=== PATIENT | female | born 1960 | race Caucasian/White ===

== ENCOUNTER 2017-05-04 10:55 | Emergency (ER) | payer BC, OTHER ==
[~2017-05-04] VITALS: Ht 162.6 cm; Wt 81.0 kg
[~2017-05-04 10:55] MED LIST: CHOL200010 OR; CLN200 PO; FLX10 PO; GABA1CAP5 PO; GABA800T PO; SUMA50TA15 PO; TOPI100T20 PO; TOPI50TA16 PO; TRAZ50TA35 PO; ZCRUNK PO
[2017-05-04] MEDS ORDERED: SODIUM CHLORIDE 0.9% 1000ML 1,000 ML IV SCH (11:00)
--- NOTE | 2017-05-04 11:15 | DIAGNOSTIC IMAGING REPORT ---
HEAD CT NONCONTRAST CT DOSE: HISTORY: Stroke symptoms. stroke TECHNIQUE: Multiaxial CT images of the head were performed without the use of intravenous contrast. Automated exposure control was utilized for this study. A dose lowering technique was utilized adhering to the principles of ALARA. Comparison: None. Findings: The paranasal sinuses and mastoid air cells are clear. The calvarium and skull base are intact. The ventricles and sulci are within normal limits. There is no mass, hematoma, or midline shift. Punctate focus of increased density within the left sylvian fissure on image 12. This raises the possibility of a thrombosed branch of the distal left MCA. However, there is no loss of the packer-white differentiation to suggest an acute infarct at this time. Bilateral symmetric basal ganglia calcifications. Impression: Punctate focus of increased density within the left sylvian fissure with the. This raises the possibility of a thrombosed branch of the distal left MCA. However, there is no loss of the packer-white differentiation to suggest an acute infarct at this time. Please correlate for left-sided stroke symptoms. Electronically signed by: Leonardo Chaudhry M.D. 05/04/2017 11:13 AM Dictated Date/Time: 05/04/2017 11:08 AM
[2017-05-04 11:24] VITALS: TEMP 36.5
[2017-05-04] MEDS ORDERED: OPTIRAY 320 IV PRN (11:30)
[2017-05-04] MEDS ORDERED: RECOMBINANT IV STA (11:35)
[2017-05-04] MEDS ORDERED: ALTEPLASE IV STA (11:35)
[2017-05-04 11:39] LABS: HEMATOCRIT 41.8 % (37-47); MEAN CELL VOLUME 98.6 fL (80-100); MEAN CORPUSCULAR HEMOGLOBIN 33.3 pg (25-34); MEAN CORPUSCULAR HGB CONC 33.7 g/dl (32-36); MEAN PLATELET VOLUME 9.6 fL (7.4-10.4); PLATELET COUNT 272 K/uL (130-400); RED BLOOD COUNT 4.24 M/uL (4.2-5.4); WHITE BLOOD COUNT 16.92 K/uL (4.8-10.8)
[2017-05-04 11:46] VITALS: O2SAT 100
[2017-05-04 11:47] LABS: INR 0.9 (0.9-1.1); PARTIAL THROMBOPLASTIN RATIO 0.9
[2017-05-04] MEDS ORDERED: LORAZEPAM 2 MG/ML 1 ML VIAL IV STA (11:54)
[2017-05-04] MEDS ORDERED: LORAZEPAM 2 MG/ML 1 ML VIAL ONE (11:54)
[2017-05-04 11:57] LABS: BLOOD UREA NITROGEN 14 mg/dl (7-18); BUN/CREATININE RATIO 13.5 (10-20); CALCIUM 8.5 mg/dl (8.5-10.1); CARBON DIOXIDE 23 mmol/L (21-32); CHLORIDE 111 mmol/L (98-107); CREATININE 1.03 mg/dl (0.60-1.20); GLUCOSE 90 mg/dl (70-99); POTASSIUM 3.6 mmol/L (3.5-5.1); SODIUM 142 mmol/L (136-145)
[2017-05-04] MEDS ORDERED: SET 2260-0500 IV ONE (12:00)
[2017-05-04] MEDS ORDERED: ALTEPLASE IV SCH (12:00)
[2017-05-04] MEDS ORDERED: ALTEPLASE IV ONE (12:00)
[2017-05-04] MEDS ORDERED: RECOMBINANT IV SCH (12:00)
[2017-05-04] MEDS ORDERED: RECOMBINANT IV ONE (12:00)
[2017-05-04 12:02] LABS: CKMB/CK RATIO 2.3 (0-3.0)
[2017-05-04 12:04] LABS: BASO % 0.4 %; BASO ABS # 0.07 K/uL (0-0.2); COMPLETE YES; HYPERSEGMENTED POLYS 1+; IG% 0.4 %; LYMPH % 30.9 %; LYMPH ABS # 5.23 K/uL (1.2-3.4); MONO % 7.4 %; NEUT % 58.9 %; TEAR DROP CELLS 1+
--- NOTE | 2017-05-04 12:05 | DIAGNOSTIC IMAGING REPORT ---
CHEST ONE VIEW PORTABLE HISTORY: Stroke symptoms. COMPARISON: Chest 03/18/2007. FINDINGS: Small linear density at the left lung base favors scarring or atelectasis. The lungs are otherwise clear. The heart is normal in size. No pleural effusions. No pneumothorax. Surgical clips within the right upper quadrant. IMPRESSION: No acute process. Electronically signed by: Leonardo Chaudhry M.D. 05/04/2017 12:04 PM Dictated Date/Time: 05/04/2017 12:03 PM
[2017-05-04 12:07] VITALS: Ht 162.6 cm; Wt 81.0 kg
[2017-05-04] MEDS ORDERED: ESCI1TAB10 PO (12:42)
[2017-05-04] MEDS ORDERED: NRN/600 PO ×2 (12:42)
[2017-05-04] MEDS ORDERED: TOPI100T20 PO (12:42)
[2017-05-04] MEDS ORDERED: RLF750 PO (12:42)
--- NOTE | 2017-05-04 12:45 | DIAGNOSTIC IMAGING REPORT ---
ADDENDUM A 1.7 mm aneurysm within the supraclinoid segment of the left ICA. Electronically signed by: Leonardo Chaudhry M.D. 05/04/2017 12:48 PM Dictated Date/Time: 05/04/2017 12:48 PM ORIGINAL REPORT HEAD CTA HISTORY: Status post TPA. Stroke. TECHNIQUE: Multiaxial CT images of the head were performed both before and after the intravenous administration of contrast to evaluate the major cerebral vessels. Maximum intensity projection images were also obtained. A dose lowering technique was utilized adhering to the principles of ALARA. COMPARISON: Head CT 05/04/2017. FINDINGS: There is now evidence for loss of the packer-white junction within the left subinsular cortex consistent with an acute MCA territory infarct. Bilateral basal ganglia calcifications are again noted. No hematoma or midline shift. The ventricles are normal in size. No significant stenosis or occlusion within the intracranial internal carotid arteries, distal vertebral arteries, basilar artery, bilateral ACAs, bilateral underwriting director, or right MCA. Focal abrupt cutoff/occlusion within the superior branch of the left MCA corresponding to the left MCA territory infarct. This is best seen on coronal image 37 of 99. IMPRESSION: Focal occlusion within the superior branch of the left MCA resulting in the left MCA territory infarct. No acute hemorrhage. Electronically signed by: Leonardo Chaudhry M.D. 05/04/2017 12:43 PM Dictated Date/Time: 05/04/2017 12:38 PM
[2017-05-04] MEDS ORDERED: SUMA100T16 PO (12:47)
--- NOTE | 2017-05-04 12:49 | DIAGNOSTIC IMAGING REPORT ---
NECK CTA HISTORY: Right-sided weakness. Abnormal head CT. Left-sided STROKE TECHNIQUE: Multiaxial CT images of the neck were performed following the intravenous administration of contrast to evaluate the major cervical vessels. Maximum intensity projection images were also obtained. All measurements were calculated based on NASCET criteria. A dose lowering technique was utilized adhering to the principles of ALARA. COMPARISON STUDY: None. FINDINGS: The aortic arch and proximal great vessels are widely patent. There is no significant stenosis, occlusion, or dissection identified within the bilateral common carotid, internal carotid, or vertebral arteries. Medial deviation of the bilateral internal carotid arteries which extend into the prevertebral space. Minimal calcified plaque within the left carotid bulb. A 1.7 mm aneurysm within the supraclinoid segment of the left ICA. This is best seen on axial image 329. IMPRESSION: 1. No significant stenosis, occlusion, or dissection identified within the carotid or vertebral arteries. 2. A 1.7 mm aneurysm within the supraclinoid segment of the left ICA. Electronically signed by: Leonardo Chaudhry M.D. 05/04/2017 12:47 PM Dictated Date/Time: 05/04/2017 12:43 PM
--- NOTE | 2017-05-04 13:07 | DIAGNOSTIC IMAGING REPORT ---
HEAD CT NONCONTRAST CT DOSE: 795.47 mGy.cm HISTORY: Stroke. Worsening altered mental status. CVA, TPA, AMS-somnolent TECHNIQUE: Multiaxial CT images of the head were performed without the use of intravenous contrast. Automated exposure control was utilized for this study. A dose lowering technique was utilized adhering to the principles of ALARA. Comparison: Head CTA 05/04/2017. Findings: The paranasal sinuses and mastoid air cells are clear. The study was performed medially following a head CTA. Therefore, there is contrast remaining throughout the brain. This results in near nondiagnostic evaluation for intracranial hemorrhage. However, no large intracranial hematoma identified. Persistent loss of the packer-white junction within the left frontotemporal region surrounding the subinsular cortex consistent with an acute left MCA territory infarct. No mass or midline shift. Bilateral basal ganglia calcifications are again noted. Impression: 1. Redemonstration of the acute left MCA territory infarct. 2. Evaluation for an intracranial hemorrhage is near nondiagnostic due to the residual intravenous contrast. However, no large intracranial hematoma identified. Electronically signed by: Leonardo Chaudhry M.D. 05/04/2017 1:06 PM Dictated Date/Time: 05/04/2017 1:03 PM
[2017-05-04 13:31] VITALS: BP 128/69; PULSE 72; O2SAT 100
--- NOTE | 2017-05-04 14:03 | EMERGENCY ROOM VISIT NOTE ---
History Report prepared by Mary Kate: Isaac Awad Under the Supervision of: Dr. Marie Dwyer M.D. First contact with patient: 10:57 Stated Complaint: STROKE ALERT History of Present Illness The patient is a 56 year old female who presents to the Emergency Room with complaints of persistent neurologic symptoms beginning one hour ago. She has a history of migraines. She had a total knee surgery two days ago with [facility]. Per daughter, the patient fell off of the couch this morning and was "unresponsive". She states that the patient was unable to talk, and was shaking at this time. She notes that the patient had a facial droop and was unable to speak upon her arrival. The patient's daughter notes that the patient has a history of a brain tumor that is being followed up. She feels that the patient has been able to understand speech, but is unable to say the words she wants to. She notes that the patient has a history of chronic diarrhea and hyperlipidemia. She notes that the patient's blood pressure tends to run low. The patient is not on any blood thinners. She is a smoker. HPI limited secondary to altered mental status. Source of History: patient History Limited By: AMS Onset: 3 hours ago Quality: other (neurologic symptoms) Timing: other (persistent) Note: Additional symptoms: shaking, facial droop. Review of Systems ROS limited secondary to altered mental status. Past Medical & Surgical Medical Problems: (1) HLD (hyperlipidemia) (2) Migraines Family History No pertinent family history stated. Social History Alcohol Use: none Marital Status: Housing Status: lives with family Occupation Status: unemployed Current/Historical Medications Scheduled Escitalopram Oxalate (Lexapro), 20 MG PO DAILY Gabapentin (Neurontin), 600 MG PO BID Gabapentin (Neurontin), 1,200 MG PO HS Nabumetone (Nabumetone), 750 MG PO BID Topiramate (Topamax), 100 MG PO QAM Scheduled PRN Sumatriptan Succinate (Imitrex), 100 MG PO PRN PRN for Migraine Allergies Coded Allergies: Meloxicam (Unverified Allergy, Mild, ITCHING SWELLING, 05/04/17) Codeine (Unverified Allergy, Unknown, 05/04/17) Penicillins (Unverified Allergy, Unknown, 05/04/17) Propranolol (Unverified Allergy, Unknown, 05/04/17) Morphine (Verified Adverse Reaction, Severe, severe hypotension, 05/04/17) Physical Exam Vital Signs Date Time Temp Pulse Resp B/P (MAP) Pulse Ox O2 Delivery O2 Flow Rate FiO2 05/04/17 13:31 72 17 128/69 100 05/04/17 13:10 72 18 131/87 98 Nasal Cannula 2.0 05/04/17 12:56 85 108/86 100 Nasal Cannula 2.0 05/04/17 12:29 83 16 92/52 97 Room Air 05/04/17 12:15 104 20 109/71 94 Room Air 05/04/17 12:00 82 17 102/79 95 Room Air 05/04/17 11:46 100 Room Air 05/04/17 11:46 131/79 05/04/17 11:45 82 19 96 05/04/17 11:35 79 17 133/79 99 Room Air 05/04/17 11:25 86 17 116/74 98 05/04/17 11:24 36.5 85 20 123/72 94 05/04/17 11:15 87 20 123/72 99 Room Air 05/04/17 11:12 90 Physical Exam Vital signs reviewed. General: Agitated. Anxious. Ill appearing. Confused, unable to reliably follow commands. HEENT: No scleral icterus, PERRLA, neck supple. Atraumatic. Cardiovascular: Regular rate and rhythm, no extra sounds. Pulmonary: Clear to auscultation bilaterally, normal work of breathing. Abdomen: Soft, nontender, nondistended, positive bowel sounds. Musculoskeletal: Atraumatic, no peripheral edema. Neurologic: Right sided facial droop. Unable to follow complicated commands. PERRL. Unable to cooperate with smile, tongue deviation exam, visual field. Cerebellar exam not reliably retained. No clear pronator drift. Weakness of right blender strength. Equal strength in bilateral lower extremities. Skin: Warm, dry, no rash Medical Decision & Procedures ER Provider Diagnostic Interpretation: Radiology results as stated below per my review and radiologist interpretation: HEAD CT NONCONTRAST Findings: The paranasal sinuses and mastoid air cells are clear. The calvarium and skull base are intact. The ventricles and sulci are within normal limits. There is no mass, hematoma, or midline shift. Punctate focus of increased density within the left sylvian fissure on image 12. This raises the possibility of a thrombosed branch of the distal left MCA. However, there is no loss of the packer-white differentiation to suggest an acute infarct at this time. Bilateral symmetric basal ganglia calcifications. Impression: Punctate focus of increased density within the left sylvian fissure with the. This raises the possibility of a thrombosed branch of the distal left MCA. However, there is no loss of the packer-white differentiation to suggest an acute infarct at this time. Please correlate for left-sided stroke symptoms. Electronically signed by: Leonardo Chaudhry M.D. 05/04/2017 11:13 AM NECK CTA FINDINGS: The aortic arch and proximal great vessels are widely patent. There is no significant stenosis, occlusion, or dissection identified within the bilateral common carotid, internal carotid, or vertebral arteries. Medial deviation of the bilateral internal carotid arteries which extend into the prevertebral space. Minimal calcified plaque within the left carotid bulb. A 1.7 mm aneurysm within the supraclinoid segment of the left ICA. This is best seen on axial image 329. IMPRESSION: 1. No significant stenosis, occlusion, or dissection identified within the carotid or vertebral arteries. 2. A 1.7 mm aneurysm within the supraclinoid segment of the left ICA. Electronically signed by: Leonardo Chaudhry M.D. 05/04/2017 12:47 PM ADDENDUM A 1.7 mm aneurysm within the supraclinoid segment of the left ICA. Electronically signed by: Leonardo Chaudhry M.D. 05/04/2017 12:48 PM Dictated Date/Time: 05/04/2017 12:48 PM ORIGINAL REPORT HEAD CTA FINDINGS: There is now evidence for loss of the packer-white junction within the left subinsular cortex consistent with an acute MCA territory infarct. Bilateral basal ganglia calcifications are again noted. No hematoma or midline shift. The ventricles are normal in size. No significant stenosis or occlusion within the intracranial internal carotid arteries, distal vertebral arteries, basilar artery, bilateral ACAs, bilateral supervisor concrete stone finishing, or right MCA. Focal abrupt cutoff/occlusion within the superior branch of the left MCA corresponding to the left MCA territory infarct. This is best seen on coronal image 37 of 99. IMPRESSION: Focal occlusion within the superior branch of the left MCA resulting in the left MCA territory infarct. No acute hemorrhage. Electronically signed by: Leonardo Chaudhry M.D. 05/04/2017 12:[address] NONCONTRAST Findings: The paranasal sinuses and mastoid air cells are clear. The study was performed medially following a head CTA. Therefore, there is contrast remaining throughout the brain. This results in near nondiagnostic evaluation for intracranial hemorrhage. However, no large intracranial hematoma identified. Persistent loss of the packer-white junction within the left frontotemporal region surrounding the subinsular cortex consistent with an acute left MCA territory infarct. No mass or midline shift. Bilateral basal ganglia calcifications are again noted. Impression: 1. Redemonstration of the acute left MCA territory infarct. 2. Evaluation for an intracranial hemorrhage is near nondiagnostic due to the residual intravenous contrast. However, no large intracranial hematoma identified. Electronically signed by: Leonardo Chaudhry M.D. 05/04/2017 1:06 PM CHEST ONE VIEW PORTABLE FINDINGS: Small linear density at the left lung base favors scarring or atelectasis. The lungs are otherwise clear. The heart is normal in size. No pleural effusions. No pneumothorax. Surgical clips within the right upper quadrant. IMPRESSION: No acute process. Electronically signed by: Leonardo Chaudhry M.D. 05/04/2017 12:04 PM Laboratory Results 05/04/17 11:07 Red Blood Count 4.24, Mean Corpuscular Volume 98.6, Mean Corpuscular Hemoglobin 33.3, Mean Corpuscular Hemoglobin Concent 33.7, Mean Platelet Volume 9.6, Neutrophils (%) (Auto) 58.9, Lymphocytes (%) (Auto) 30.9, Monocytes (%) (Auto) 7.4, Eosinophils (%) (Auto) 2.0, Basophils (%) (Auto) 0.4, Neutrophils # (Auto) 9.95, Lymphocytes # (Auto) 5.23, Monocytes # (Auto) 1.26, Eosinophils # (Auto) 0.34, Basophils # (Auto) 0.07 05/04/17 11:07 Test 05/04/17 11:07 White Blood Count 16.92 K/uL (4.8-10.8) Red Blood Count 4.24 M/uL (4.2-5.4) Hemoglobin 14.1 g/dL (12.0-16.0) Hematocrit 41.8 % (37-47) Mean Corpuscular Volume 98.6 fL (80-100) Mean Corpuscular Hemoglobin 33.3 pg (25-34) Mean Corpuscular Hemoglobin Concent 33.7 g/dl (32-36) Platelet Count 272 K/uL (130-400) Mean Platelet Volume 9.6 fL (7.4-10.4) Neutrophils (%) (Auto) 58.9 % Lymphocytes (%) (Auto) 30.9 % Monocytes (%) (Auto) 7.4 % Eosinophils (%) (Auto) 2.0 % Basophils (%) (Auto) 0.4 % Neutrophils # (Auto) 9.95 K/uL (1.4-6.5) Lymphocytes # (Auto) 5.23 K/uL (1.2-3.4) Monocytes # (Auto) 1.26 K/uL (0.11-0.59) Eosinophils # (Auto) 0.34 K/uL (0-0.5) Basophils # (Auto) 0.07 K/uL (0-0.2) RDW Standard Deviation 46.0 fL (36.4-46.3) RDW Coefficient of Variation 12.7 % (11.5-14.5) Immature Granulocyte % (Auto) 0.4 % Immature Granulocyte # (Auto) 0.07 K/uL (0.00-0.02) Hypersegmented Polys 1+ Tear Drop Cells 1+ Prothrombin Time 10.0 SECONDS (9.0-12.0) Prothromb Time International Ratio 0.9 (0.9-1.1) Activated Partial Thromboplast Time 22.8 SECONDS (21.0-31.0) Partial Thromboplastin Ratio 0.9 Anion Gap 8.0 mmol/L (3-11) Est Creatinine Clear Calc Drug Dose 62.1 ml/min Estimated GFR () 69.9 Estimated GFR (Non- 60.3 BUN/Creatinine Ratio 13.5 (10-20) Calcium Level 8.5 mg/dl (8.5-10.1) Magnesium Level 2.0 mg/dl (1.8-2.4) Total Creatine Kinase 26 U/L (26-192) Creatine Kinase MB 0.6 ng/ml (0.5-3.6) Creatine Kinase MB Ratio 2.3 (0-3.0) Troponin I < 0.015 ng/ml (0-0.045) Laboratory results per my review. Medications Administered Medications (Trade) Dose Ordered Sig/García Route Start Time Stop Time Status Last Admin Dose Admin Sodium Chloride 1,000 ml @ 50 mls/hr Q20H IV 05/04/17 11:00 05/04/17 13:46 DC 05/04/17 12:20 50 MLS/HR Alteplase, Recombinant 64.8 mg/Empty Bag 64.8 ml @ 64.8 mls/hr TODAY@1200 IV 05/04/17 12:00 05/04/17 12:59 DC 05/04/17 11:53 64.8 MLS/HR Alteplase, Recombinant 7.2 mg/Syringe 7.2 ml @ 7.2 mls/min NOW ONCE IV 05/04/17 12:00 05/04/17 12:01 DC 05/04/17 11:53 7.2 MLS/MIN Lorazepam (Ativan Inj) 2 mg NOW STAT IV 05/04/17 11:54 05/04/17 11:55 DC 05/04/17 12:21 2 MG ECG Indication: other (neurologic symptoms) Rate (beats per minute): 83 Rhythm: sinus rhythm Findings: PAC, no acute ischemic change, other (Poor quality baseline) ED Course 1102: Past medical records reviewed. The patient was evaluated in room B1. A complete history and physical examination was performed. 1100: Ordered Sodium Chloride 1000 ml @ 50 mls/hr IV. 1151: The patient began yelling once TPA began being administered. I checked on the patient and she appears very agitated. 1154: Ordered Ativan Inj 2 mg IV. 1200: Ordered Alteplase Recombinant 7.2 mg/Syringe 7.2 mL @ 7.2 mL/min IV. 1240: Upon reevaluation, the patient is resting comfortably. I discussed laboratory and radiographic results with her and her family. They verbalized agreement of the treatment plan. The patient will be transferred to [facility] by ground. Medical Decision Differential diagnosis: Etiologies such as metabolic, infection, hypo/hyperglycemia, electrolyte abnormalities, cardiac sources, intracerebral event, toxicologic, neurologic, as well as others were entertained. This patient was evaluated and appeared to be acutely ill. Physical examination is inconsistent however does reveal a persistent right-sided facial droop. Patient has a weakness of the right upper extremity. She has aphasia and is unable to follow commands. CT scan of the head was performed and is consistent with an acute ischemic CVA. There is no change in the packer-white matter. Telemetry stroke radiologist, Dr. Penny was contacted. He has evaluated the patient and feels she meets criteria for TPA administration. Patient's family was informed of the risks and benefits of the TPA. They have accepted the risk of bleeding and potential . TPA was administered and the patient was taken for CT angiogram. She did have a bit of an anxiety-type reaction with yelling and confusion. She did require IV Ativan for repeat CT. This study is read as above. There is no acute hemorrhage. The patient was arousable was no significant change in mental status until preparation for transfer. The helicopters are not flying today secondary to weather. ALS ground was summoned. The patient was taken to CAT scan for one final CT scan after the TPA due to minimal responsiveness. This study is also read as above. There is no large hematoma appreciated although this study is somewhat compromised secondary to IV contrast. The patient was sent by ground ALS to [facility] for further management. Family is aware of the plan and agrees. Medication Reconcilliation Current Medication List: was personally reviewed by me Blood Pressure Screening Patient's blood pressure: Normal blood pressure Blood pressure disposition: Did not require urgent referral Consults Time Called: 1110 Consulting Physician: Dr. Penny -Neurology Returned Call: [phone] I reviewed the patient's case with Dr. Penny. He will evaluate the patient via TeleStroke. He predicts that the patient will require TPA and transfer to [place]. 1134: I spoke with Dr. Penny. He recommends proceeding with TPA. 1240: Discussed the patient's case with Dr. Penny. The patient will be transferred to [facility] by ground. Impression Primary Impression: Acute CVA (cerebrovascular accident) Critical Care I have personally spent greater than 75 minutes of critical care time in the direct management of this patient. This includes bedside care, interpretation of diagnostic studies, and testing, discussion with consultants, patient, and family members, and other required patient management activities. This 75 minutes is in excess of all separately billable procedures. Scribe Attestation The scribe's documentation has been prepared under my direction and personally reviewed by me in its entirety. I confirm that the note above accurately reflects all work, treatment, procedures, and medical decision making performed by me. Departure Information Dispostion Transfer Acute Care Facility ([facility] by ground) Referrals Elton Mesa D.O. (PCP)
== END 2017-05-04 13:37 | disposition short-term general hospital (02) ==
LOC: EDBD 10:55 → C.EDB 10:56
DX: I63.9 Cerebral infarction, unspecified (principal); R47.01 Aphasia; R29.810 Facial weakness; M62.81 Muscle weakness (generalized); G43.909 Migraine, unspecified, not intractable, without status migrainosus; E78.5 Hyperlipidemia, unspecified; F17.210 Nicotine dependence, cigarettes, uncomplicated; Z96.659 Presence of unspecified artificial knee joint; Z79.899 Other long term (current) drug therapy

== ENCOUNTER 2021-10-14 18:00 | Observation (INO) ==
--- NOTE | 2021-10-14 18:14 | Emergency Department Note ---
Impression & Plan Acute CVA (cerebrovascular accident), Numbness and tingling, Facial droop ED Provider Note NAME: MACHO OCONNOR AGE: 61 SEX: F : 1960 ARRIVES VIA: Walk-In INFORMANT: Patient, ED PROVIDER(S): Kumar Lewis DO CHIEF COMPLAINT: Strokelike symptoms HPI: The patient is a 61-year-old female [facility]. She was driving in a vehicle with her significant other. She presented to the emergency department through triage. The patient relates that she started having acute onset of tingling in the left side of her face. She states that it "just does not feel right". She states she has some generalized weakness. She has been able to ambulate. She denies having any headache or trauma. She has a history of a stroke in the past but also has a history of migraine headache. She denies having any nausea or vomiting. She states she is been compliant with her usual outpatient medications and does take aspirin every day. She is on no blood thinners. The patient states her symptoms were moderate. They have not changed since the onset. She states that she has no chest pain or difficulty breathing. ROS: See above HPI for pertinent positives & negatives. A total of 10 systems reviewed and were otherwise negative. PAST MEDICAL HISTORY: See Below PAST SURGICAL HISTORY: See Below FAMILY HISTORY: See Below SOCIAL HISTORY: See Below HOME MEDICATIONS: See Below ALLERGIES: See Below VITALS: See Below PHYSICAL EXAMINATION: GENERAL: The patient is awake and alert. She is somewhat anxious appearing but overall comfortable. EYES: The conjunctivae are clear. The pupils are round and reactive. EARS, NOSE, MOUTH AND THROAT: The nose is without any evidence of any deformity. NECK: The neck is nontender and supple. RESPIRATORY: Normal respiratory effort is noted there is no evidence of wheezing rhonchi or rales CARDIOVASCULAR: Regular rate and rhythm noted there no murmurs rubs or gallops normal S1 normal S2. GASTROINTESTINAL: The abdomen is soft. Abdomen is nontender. MUSCULOSKELETAL/EXTREMITIES: There is no evidence of gross deformity full range of motion is noted in the hips and shoulders. SKIN: There is no obvious evidence of any rash. There are no petechiae, pallor or cyanosis noted. NEUROLOGIC: Patient is awake alert and oriented x3. There was slight facial droop on the left noted above. The forehead was not involved. He did meter tester polyphase strength was symmetric. Patellar tendon reflexes were 2+ bilaterally. There is no drift in the upper extremity. MEDICAL DECISION MAKING: The patient is a 61-year-old female who presented to the emergency department for an evaluation of strokelike symptoms. The patient was made a stroke alert upon arrival although she did present through triage. The patient had left- sided facial droop with forehead sparing as well as dysesthesia initially to the left side of the face but on reevaluation and by NIH stroke scale appears to hav e some tingling on the entire left side of her body. The patient was made a stroke alert. I discussed this case with the [facility] telestroke neurologist. The patient's overall condition appeared to have an NIH of between 2 and 3. Her presenting symptoms do not appear to be consistent with an acute large vessel occlusion. She has no change noted on angiography. She does not appear to meet criteria for thrombolytic administration at this time as I feel the risks may outweigh the benefits. I discussed this with the patient. She was agreeable. She was loaded with Plavix at the request of the telestroke neurologist. The [facility] hospitalist group was notified about the patient. They will evaluate the patient in the emergency department for further management and disposition Triage Nursing notes reviewed. Prior medical records reviewed Vital Signs: reviewed and remarkable for hypotension. Differential diagnosis: Infection, dehydration, metabolic abnormality, hypo/hyperglycemia, electrolyte disturbance, anemia, hypoxia, cardiac sources, intracerebral event, toxicologic, neurologic, as well as other pathologies. ER treatment provided: See below Diagnostics interpreted by me: ECG: EKG was obtained in the emergency department. My interpretation is normal sinus rhythm at 95 bpm. There is no ectopy. Low voltage was noted throughout. This was compared to a tracing from December 25, 2017. No changes were noted. Cardiac Monitoring: An order was placed for continuous cardiac monitoring. The monitor shows a rate of 95 bpm with sinus rhythm. Laboratory studies: As stated above and show below. Imaging studies: See below Consultation(s): 1623: Discussed this case with Dr. Navas who is on-call for [facility] telestroke. She asked that we call her back once we have further information. 1645: I discussed this case with Dr. Yosef. At this time the patient's NIH peers to be 21. At this time she does not recommend thrombolytics given the patient's findings. She does recommend a Plavix load of 300 mg. ED COURSE: Procedures: none Critical Care: I have personally spent greater than 45 minutes of critical care time in the direct management of this patient. This includes bedside care, interpretation of diagnostic studies, and testing, discussion with consultants, patient, and family members, and other required patient management activities. This 45 m inutes is in excess of all separately billable procedures. Past Med/Surg History Medical History (Updated 10/14/21 @ 19:55 by Kumar Lewis DO) Anxiety disorder Cervical radiculopathy Chronic obstructive pulmonary disease Common migraine without aura Common peroneal neuropathy of right lower extremity History of ischemic left MCA stroke HLD (hyperlipidemia) Low back pain Neck pain Osteoarthritis Surgical History H/O carpal tunnel repair Hx of hysterectomy S/P cholecystectomy Family History Mother Migraine Daughter Migraine Social History Smoking Status: Current every day smoker Feels Safe at Home: Yes Allergies Allergies Allergy/AdvReac Type Severity Reaction Status Date / Time meloxicam Allergy Mild ITCHING Verified 09/06/21 15:29 SWELLING codeine Allergy Unknown Verified 09/06/21 15:29 Penicillins Allergy Unknown Verified 09/06/21 15:29 propranolol Allergy Unknown Verified 09/06/21 15:29 morphine AdvReac Severe severe Verified 09/06/21 15:29 hypotension Inderal TABS Allergy Unknown Uncoded 09/06/21 15:29 Mobic TABS Allergy Unknown Uncoded 09/06/21 15:29 Home Meds Home Medications Medication Instructions Recorded Confirmed diclofenac sodium 1 % topical gel See Rx Instructions TOPICAL 02/23/19 10/14/21 .COMPLEX gm aspirin 81 mg tablet,delayed 81 mg PO DAILY tab 02/26/19 10/14/21 release atorvastatin 40 mg tablet 40 mg PO DAILY tab 02/26/19 10/14/21 Previous Rx's Medication Instructions Recorded bupropion HCl 150 mg 24 hr tablet, 150 mg PO DAILY #90 tab 09/06/21 extended release (Wellbutrin XL) doxepin 75 mg capsule 75 mg PO DAILY #90 cap 09/06/21 galcanezumab-gnlm 120 mg/mL 120 mg SQ .COMPLEX #3 ml 09/06/21 subcutaneous syringe (Emgality) methocarbamol 750 mg tablet 750 mg PO BID PRN #180 tab 09/06/21 promethazine 25 mg tablet 25 mg PO BID PRN #120 tab 09/06/21 topiramate 100 mg tablet 100 mg PO BID #180 tab 09/06/21 ubrogepant 100 mg tablet (Ubrelvy) 100 mg PO .COMPLEX PRN #30 tab MDD 09/06/21 200mg Results & Data (ED) Vital Signs Vital Signs - 24 hr 10/14/21 18:03 10/14/21 18:35 10/14/21 19:00 Temperature 36.6 C Temperature Source Temporal Artery Scan Pulse Rate 111 H Pulse Rate [Apical] 95 H Pulse Rhythm Regular Pulse Strength Normal Respiratory Rate 20 19 Respiratory Effort / Characteristics Non-Labored Spontaneous Respiratory Depth Normal Normal Respiratory Pattern Regular Blood Pressure 139/92 Blood Pressure [Left Arm] 94/74 L Blood Pressure Mean 107 Blood Pressure Mean [Left Arm] 80 Blood Pressure Position Sitting Pulse Oximetry 95 99 Oxygen Delivery Method Room Air Room Air Room Air Sepsis Recent Fever Within 48 Hours No Sepsis New/Unexplained Change in Mental Status N/A Sepsis Action Taken by Nursing No Action Required Home Medications Current Medication List: was personally reviewed by me Laboratory Data Attestation: I reviewed the patient's lab results. Result diagrams: 10/14/21 18:12 10/14/21 18:12 Lab Results 10/14/21 10/14/21 10/14/21 Range/Units 18:12 18:12 18:12 WBC 11.37 H (4.8-10.8) K/uL RBC 4.60 (4.2-5.4) M/uL Hgb 15.1 (12.0-16.0) g/dL Hct 44.2 (37-47) % MCV 96.1 (80-100) fL MCH 32.8 (25-34) pg MCHC 34.2 (32-36) g/dL RDW Std Deviation 48.1 H (36.4-46.3) fL RDW Coeff of Kathy 13.5 (11.5-14.5) % Plt Count 308 (130-400) K/uL MPV 10.1 (7.4-10.4) fL Immature Gran % (Auto) 0.3 % Neut % (Auto) 68.1 % Lymph % (Auto) 21.3 % Harney % (Auto) 7.7 % Eos % (Auto) 2.2 % Baso % (Auto) 0.4 % Neut # (Auto) 7.75 H (1.4-6.5) K/uL Lymph # (Auto) 2.42 (1.2-3.4) K/uL Harney # (Auto) 0.88 H (0.11-0.59) K/uL Eos # (Auto) 0.25 (0-0.5) K/uL Baso # (Auto) 0.04 (0-0.2) K/uL Immature Gran # (Auto) 0.03 H (0.00-0.02) K/uL PT 10.4 (9.0-12.0) Seconds INR 1.0 (0.9-1.1) APTT 23.5 (21.0-31.0) Seconds PTT Ratio 0.9 Sodium 139 (136-145) mmol/L Potassium (3.5-5.1) mmol/L Chloride 112 H (98-107) mmol/L Carbon Dioxide 19 L (21-32) mmol/L Anion Gap 8 (3-11) BUN 11 (6-23) mg/dl Creatinine 0.97 (0.6-1.2) mg/dl Est Cr Clr Drug Dosing 51.7 ml/min Est GFR ( Amer) 72.5 ml/min Est GFR (Non-Af Amer) 62.6 ml/min BUN/Creatinine Ratio 11.3 (10-20) Glucose 88 (70-99(Fasting)) mg/dl POC Glucose (70-99) mg/dl Calcium 9.2 (8.5-10.1) mg/dl Magnesium 1.9 (1.7-2.4) mg/dl Total Bilirubin 0.3 (0.2-1.0) mg/dl AST (13-39) U/L ALT 14 (7-52) U/L Alkaline Phosphatase 128 H (34-104) U/L Troponin I High Sens 5.4 (0-14) pg/ml Total Protein 7.3 (6.0-8.3) gm/dl Albumin 4.2 (3.4-5.0) gm/dl Globulin 3.1 (2.5-4.0) gm/dl Albumin/Globulin Ratio 1.4 (0.9-2) 10/14/21 Range/Units 18:12 WBC (4.8-10.8) K/uL RBC (4.2-5.4) M/uL Hgb (12.0-16.0) g/dL Hct (37-47) % MCV (80-100) fL MCH (25-34) pg MCHC (32-36) g/dL RDW Std Deviation (36.4-46.3) fL RDW Coeff of Kathy (11.5-14.5) % Plt Count (130-400) K/uL MPV (7.4-10.4) fL Immature Gran % (Auto) % Neut % (Auto) % Lymph % (Auto) % Harney % (Auto) % Eos % (Auto) % Baso % (Auto) % Neut # (Auto) (1.4-6.5) K/uL Lymph # (Auto) (1.2-3.4) K/uL Harney # (Auto) (0.11-0.59) K/uL Eos # (Auto) (0-0.5) K/uL Baso # (Auto) (0-0.2) K/uL Immature Gran # (Auto) (0.00-0.02) K/uL PT (9.0-12.0) Seconds INR (0.9-1.1) APTT (21.0-31.0) Seconds PTT Ratio Sodium (136-145) mmol/L Potassium (3.5-5.1) mmol/L Chloride (98-107) mmol/L Carbon Dioxide (21-32) mmol/L Anion Gap (3-11) BUN (6-23) mg/dl Creatinine (0.6-1.2) mg/dl Est Cr Clr Drug Dosing ml/min Est GFR ( Amer) ml/min Est GFR (Non-Af Amer) ml/min BUN/Creatinine Ratio (10-20) Glucose (70-99(Fasting)) mg/dl POC Glucose 96 (70-99) mg/dl Calcium (8.5-10.1) mg/dl Magnesium (1.7-2.4) mg/dl Total Bilirubin (0.2-1.0) mg/dl AST (13-39) U/L ALT (7-52) U/L Alkaline Phosphatase (34-104) U/L Troponin I High Sens (0-14) pg/ml Total Protein (6.0-8.3) gm/dl Albumin (3.4-5.0) gm/dl Globulin (2.5-4.0) gm/dl Albumin/Globulin Ratio (0.9-2) Administered Medications Discontinued Medications Clopidogrel Bisulfate (Clopidogrel Bisulfate 300 Mg Tab) 300 mg PO NOW STA Stop: 10/14/21 18:57 Last Admin: 10/14/21 18:59 Dose: 300 mg Documented by: [id number] Ioversol (Optiray 320 125ml) 120 ml IV ONCE ONE Stop: 10/14/21 18:27 Last Admin: 10/14/21 18:27 Dose: 120 ml Documented by: [id number] Imaging Data Radiologist's Impression: Head CT 10/14/21 18:08 CT head/brain wo con CLINICAL HISTORY: 61 years-old Female with Stroke Like Symptoms. Acute strokelike symptoms TECHNIQUE: Multiple axial CT images of the head were obtained without contrast. A dose lowering technique was utilized adhering to the principles of ALARA. COMPARISON: CTA head and neck of same day, head CT 12/25/2017 FINDINGS: No acute intracranial hemorrhage, midline shift, intracranial mass, hydrocephalus, territorial ischemia or abnormal extra-axial collection. Calcifications of the basal ganglia redemonstrated. Left frontal lobe chronic infarct with encephalomalacia redemonstrated centered within the gestation the left sylvian fissure and operculum. Mild white matter hypodensities suggest chronic microvascular ischemic disease. The calvarium is intact. The paranasal sinuses, mastoid air cells, and middle ear cavities are clear. IMPRESSION: 1. No acute intracranial abnormality. 2. Chronic left frontal lobe infarct. ACT 112: Negative or not required by law. The above report was generated using voice recognition software. It may contain grammatical, syntax or spelling errors. Electronically signed by: Joaquim Kumar M.D. 10/14/2021 6:34 PM Head CTA 10/14/21 18:08 CT angio neck with con, CT angio head w con CLINICAL HISTORY: 61 years-old Female with Stroke Like Symptoms. Acute strokelike symptoms COMPARISON STUDY: Head CT of same day, CTA head and neck 05/04/2017 TECHNIQUE: Following the IV administration of 120 mL of Optiray, CT angiogram of the head and neck was performed from the aortic arch to the skull base. Images are reviewed in the axial, sagittal, and coronal planes. 3-D MIPS images are created and assessed. IV contrast was administered without complication. All measurements were calculated based on NASCET criteria. A dose lowering technique was utilized adhering to the principles of ALARA. CT DOSE: 1047.01 mGy.cm FINDINGS: Patency of the innominate and imaged subclavian arteries. Atherosclerosis of the carotid bulbs and proximal cervical segments of the internal carotid arteries without high-grade stenosis. Unchanged 1.7 cm saccular aneurysm involving the medial aspect of the supraclinoid segment of the left internal carotid artery, image 92 series 5. The middle and anterior cerebral arteries are patent. Codominant and widely patent vertebral arteries. The basilar and posterior cerebral arteries are patent. The cerebral venous sinuses are patent. There is no abnormal intracranial enhancement. Chronic left frontal lobe infarct. Moderate to severe pulmonary emphysema. Unremarkable soft tissues. Degenerative changes of the cervical spine. IMPRESSION: 1. Chronic left MCA infarct redemonstrated. 2. Unchanged 1.7 mm saccular aneurysm involving the supraclinoid segment of the left internal carotid artery. 3. Atherosclerosis of the carotid bulbs without significant stenosis. 4. Moderate to severe pulmonary emphysema. ACT 112: Negative or not required by law. The above report was generated using voice recognition software. It may contain grammatical, syntax or spelling errors. Electronically signed by: Joaquim Kumar M.D. 10/14/2021 7:25 PM Neck CTA 10/14/21 18:08 CT angio neck with con, CT angio head w con CLINICAL HISTORY: 61 years-old Female with Stroke Like Symptoms. Acute strokelike symptoms COMPARISON STUDY: Head CT of same day, CTA head and neck 05/04/2017 TECHNIQUE: Following the IV administration of 120 mL of Optiray, CT angiogram of the head and neck was performed from the aortic arch to the skull base. Images are reviewed in the axial, sagittal, and coronal planes. 3-D MIPS images are cr eated and assessed. IV contrast was administered without complication. All measurements were calculated based on NASCET criteria. A dose lowering technique was utilized adhering to the principles of ALARA. CT DOSE: 1047.01 mGy.cm FINDINGS: Patency of the innominate and imaged subclavian arteries. Atherosclerosis of the carotid bulbs and proximal cervical segments of the internal carotid arteries without high-grade stenosis. Unchanged 1.7 cm saccular aneurysm involving the medial aspect of the supraclinoid segment of the left internal carotid artery, image 92 series 5. The middle and anterior cerebral arteries are patent. Codomi nant and widely patent vertebral arteries. The basilar and posterior cerebral arteries are patent. The cerebral venous sinuses are patent. There is no abnormal intracranial enhancement. Chronic left frontal lobe infarct. Moderate to severe pulmonary emphysema. Unremarkable soft tissues. Degenerative changes of the cervical spine. IMPRESSION: 1. Chronic left MCA infarct redemonstrated. 2. Unchanged 1.7 mm saccular aneurysm involving the supraclinoid segment of the left internal carotid artery. 3. Atherosclerosis of the carotid bulbs without significant stenosis. 4. Moderate to severe pulmonary emphysema. ACT 112: Negative or not required by law. The above report was generated using voice recognition software. It may contain grammatical, syntax or spelling errors. Electronically signed by: Joaquim Kumar M.D. 10/14/2021 7:25 PM Discharge Plan Visit Data Chief Complaint: Stroke/CVA Symptoms Stated Complaint: CVA SYMPTOMS ED Provider: Kumar Lewis Discharge Problem: Acute CVA (cerebrovascular accident), Numbness and tingling, Facial droop Patient Disposition: Being Evaluated by Hospitalist Forms Stand Alone Forms: [facility] Prescriptions Prescriptions: No Action bupropion HCl [Wellbutrin XL] 150 mg tablet extended release 24 hr 150 mg PO DAILY Qty: 90 RF: 2 doxepin 75 mg capsule 75 mg PO DAILY Qty: 90 RF: 2 Emgality Syringe 120 mg/mL syringe 120 mg SQ .COMPLEX Qty: 3 RF: 2 methocarbamol 750 mg tablet 750 mg PO BID PRN (Reason: muscle spasm) Qty: 180 RF: 2 promethazine 25 mg tablet 25 mg PO BID PRN (Reason: nausea and vomiting) Qty: 120 RF: 1 topiramate 100 mg tablet 100 mg PO BID Qty: 180 RF: 2 Ubrelvy 100 mg tablet 100 mg PO .COMPLEX MDD 200mg PRN (Reason: migraine headache) Qty: 30 RF: 2 diclofenac sodium 1 % gel See Rx Instructions topical .COMPLEX RF: 0 atorvastatin 40 mg tablet 40 mg PO DAILY RF: 0 aspirin 81 mg tablet,delayed release (DR/EC) 81 mg PO DAILY RF: 0 Referrals Referrals: PCP,NO [Primary Care Provider] -
[2021-10-14 18:25] LABS: Basophils # (auto) 0.04 K/uL (0-0.2); Basophils % (auto) 0.4 %; Eosinophils # (auto) 0.25 K/uL (0-0.5); Eosinophils % (auto) 2.2 %; Hematocrit (blood only) 44.2 % (37-47); Hemoglobin 15.1 g/dL (12.0-16.0); Immature Granulocytes # (auto) 0.03 K/uL (0.00-0.02); Immature Granulocytes % (auto) 0.3 %; Lymphocytes # (auto) 2.42 K/uL (1.2-3.4); Lymphocytes % (auto) 21.3 %; Mean Corpuscular Hemoglobin 32.8 pg (25-34); Mean Corpuscular Hgb Conc 34.2 g/dL (32-36); Mean Corpuscular Volume 96.1 fL (80-100); Mean Platelet Volume 10.1 fL (7.4-10.4); Monocytes # (auto) 0.88 K/uL (0.11-0.59); Monocytes % (auto) 7.7 %; Neutrophils # (auto) 7.75 K/uL (1.4-6.5); Neutrophils % (auto) 68.1 %; Platelet Count 308 K/uL (130-400); RDW Coefficient of Variation 13.5 % (11.5-14.5); RDW Standard Deviation 48.1 fL (36.4-46.3); White Blood Count 11.37 K/uL (4.8-10.8)
[2021-10-14] MEDS ORDERED: OPTIRAY 320 125ml IV ONE (18:26)
--- NOTE | 2021-10-14 18:37 | CT Scan Report ---
CT head/brain wo con CLINICAL HISTORY: 61 years-old Female with Stroke Like Symptoms. Acute strokelike symptoms TECHNIQUE: Multiple axial CT images of the head were obtained without contrast. A dose lowering tech nique was utilized adhering to the principles of ALARA. COMPARISON: CTA head and neck of same day, head CT 12/25/2017 FINDINGS: No acute intracranial hemorrhage, midline shift, intracranial mass, hydrocephalus, territorial ischem ia or abnormal extra-axial collection. Calcifications of the basal ganglia redemonstrated. Left front al lobe chronic infarct with encephalomalacia redemonstrated centered within the gestation the left s ylvian fissure and operculum. Mild white matter hypodensities suggest chronic microvascular ischemic disease. The calvarium is intact. The paranasal sinuses, mastoid air cells, and middle ear cavities are clear . IMPRESSION: 1. No acute intracranial abnormality. 2. Chronic left frontal lobe infarct. ACT 112: Negative or not required by law. The above report was generated using voice recognition software. It may contain grammatical, syntax o r spelling errors. Electronically signed by: Joaquim Kumar M.D. 10/14/2021 6:34 PM
[2021-10-14 18:39] LABS: Partial Thromboplastin Ratio 0.9; Partial Thromboplastin Time 23.5 Seconds (21.0-31.0); Prothrombin Time 10.4 Seconds (9.0-12.0)
[2021-10-14 18:48] LABS: Troponin I High Sensitivity 5.4 pg/ml (0-14)
[2021-10-14] MEDS ORDERED: CLOPIDOGREL BISULFATE 300 MG TAB PO STA (18:56)
[2021-10-14 19:01] LABS: Albumin Globulin Ratio 1.4 (0.9-2); Albumin Level 4.2 gm/dl (3.4-5.0); BUN Creatinine Ratio 11.3 (10-20); Bilirubin,Total 0.3 mg/dl (0.2-1.0); Calcium 9.2 mg/dl (8.5-10.1); Creatinine Clr Calc Pharmacy 51.7 ml/min; Est GFR (African American) 72.5 ml/min; Est GFR (Non-African American) 62.6 ml/min; Globulin 3.1 gm/dl (2.5-4.0); Magnesium 1.9 mg/dl (1.7-2.4); Total Protein 7.3 gm/dl (6.0-8.3)
--- NOTE | 2021-10-14 19:28 | CT Scan Report ---
CT angio neck with con, CT angio head w con CLINICAL HISTORY: 61 years-old Female with Stroke Like Symptoms. Acute strokelike symptoms COMPARISON STUDY: Head CT of same day, CTA head and neck 05/04/2017 TECHNIQUE: Following the IV administration of 120 mL of Optiray, CT angiogram of the head and neck wa s performed from the aortic arch to the skull base. Images are reviewed in the axial, sagittal, and c oronal planes. 3-D MIPS images are created and assessed. IV contrast was administered without complic ation. All measurements were calculated based on NASCET criteria. A dose lowering technique was util ized adhering to the principles of ALARA. CT DOSE: 1047.01 mGy.cm FINDINGS: Patency of the innominate and imaged subclavian arteries. Atherosclerosis of the carotid bulbs and pr oximal cervical segments of the internal carotid arteries without high-grade stenosis. Unchanged 1.7 cm saccular aneurysm involving the medial aspect of the supraclinoid segment of the left internal car otid artery, image 92 series 5. The middle and anterior cerebral arteries are patent. Codominant and widely patent vertebral arteries. The basilar and posterior cerebral arteries are patent. The cerebra l venous sinuses are patent. There is no abnormal intracranial enhancement. Chronic left frontal lobe infarct. Moderate to severe pulmonary emphysema. Unremarkable soft tissues. Degenerative changes of the cervic al spine. IMPRESSION: 1. Chronic left MCA infarct redemonstrated. 2. Unchanged 1.7 mm saccular aneurysm involving the supraclinoid segment of the left internal carotid artery. 3. Atherosclerosis of the carotid bulbs without significant stenosis. 4. Moderate to severe pulmonary emphysema. ACT 112: Negative or not required by law. The above report was generated using voice recognition software. It may contain grammatical, syntax o r spelling errors. Electronically signed by: Joaquim Kumar M.D. 10/14/2021 7:25 PM
--- NOTE | 2021-10-14 20:20 | History & Physical Report ---
Date of Service October 14, 2021 Assessment & Plan (1) Numbness and tingling: Plan: This is a 61-year-old R-handed female with a history of chronic left MCA stroke,, peroneal neuropathy of the right lower extremity, migraine without aura, COPD, anxiety, memory deficits, hyperlipidemia who presented to [facility] for evaluation of L-sided facial tingling and possible mild L facial droop prior to my arrival, thereafter found to have reported L-sided sensory abnormalities on exam. She requires hospitalization for stroke/TIA-workup and neurovascular monitoring. L-Facial Numbness / L Hemisensory Abnormalities - At around 1400 on DOA, patient reported perceived L-sided facial numbness; noted to have some L facial numbness initially in ED, resolved by time of admission assessment, also found to have LUE/LLE sensory distortion to light touch - CTA-H demonstrating chronic L MCA infarct with unchanged 1.7 mm saccular aneurysm in the supraclinoid segment of the L ICA, atherosclerosis of carotid bulbs without stenosis, moderate-severe pHTN. - Possibly a TIA given her significant CVA history, unilateral presentation; however, her unilateral hemisensory loss is somewhat odd given the expected contralateral findings below the brainstem if there was a TIA. - Also on DDX: Mediation side effect (topiramate), complicated migraine (though no headache), metabolic etiology, less likely neck issue - Check MRI in AM -- give 1mg Ativan 30min before given claustrophobia - check B12, TSH, RPR, A1c, lipids - Continue ASA, atorvastatin; received Plavix in ED --> consider intensifying statin to 80mg, Plavix x 21d if pans out to be TIA - Neurochecks q4h through tonight - Consider neurology consult if ongoing / worsening / in need of diagnostic expertise - Monitor on telemetry for arrhythmia -- ECG demonstrating NSR - May wish to consider medication adjustments (topiramate, doxepin) to reduce paraesthesias if TIA is ruled-out - PT eval in AM given self-reported concerns of instability (2) History of ischemic left MCA stroke: Plan: History of L MCA Stroke - Discovered 2016, received tPA - Follows with Neurology: outpatient notes reveal this has been complicated by chronic deficits including chronic fatigue, STM impairment, atypical amnesia - Unchanged appearance on CTA - Continue ASA, statin as above (3) Low back pain: Plan: Low Back Pain - Hold methocarbamol (4) Mood disorder: Plan: Anxiety / Depression / Mood Disorder - Continue Wellbutrin, Doxepin for now (5) Migraine: Plan: Migraines - Stable at present. Continue topiramate for now -- outpatient neurology notes do recommend considering tapering given c/f ongoing fatigue - Hold Emgality, Nurtec (6) Elevated alkaline phosphatase level: Plan: Elevated ALP -- incidental finding - Minimally elevated ALP -- today at 128, also noted in past at 134 / 124 (ULN ~104) - No evidence of liver stress / disease otherwise observed - May be physiologic given how slightly it is elevated. However recheck in AM, check with vitamin D. If persistently elevated, can consider further monitoring/work-up as indicated as outpatient (e.g., GGT, osteopenia/Pagets, etc.) (7) Hypokalemia: Plan: - Appreciated at 3 on arrival - Replete with 40mEq PO now and 20mEq IV x 1 now - Recheck in AM Plan: code: DNR/DNI - discussed directly at bedside w/ patient ppx: hold pharmacologic; scds diet: hh, replete K -- 40mEq PO now and KCl 20mEq IV x 1. dispo: ms/tele History of Present Illness Primary Care Provider: VIVIANA PCP This is a 61-year-old female with a history of chronic left MCA stroke,, peroneal neuropathy of the right lower extremity, migraine without aura, COPD, anxiety, memory deficits, hyperlipidemia who presented to [facility] for evaluation of facial tingling. Patient said that earlier this afternoon, she was getting ready to go out of a car to go grocery shopping when she noticed that the left side of her face felt odd. She declined going in to the grocery store and had her go because she is worried about feelings of instability. However, as time went on, she noticed that the left side of her face was progressively feeling more numb. She denied any headache or vision ch anges at this time. Denied any issues with moving her arms or legs. Denies any nausea, vomiting, chest pain, palpitations, shortness of breath. She decided to come to the ER to be evaluated given concern for stroke. Medications reviewed and include aspirin, atorvastatin, Wellbutrin, diclofenac, doxepin, galcanezumab, methocarbamol, promethazine, topiramate, ubrogepant. She denies any new or changes in her medications. She endorses a long-term history of smoking, currently at 1 pack/day over the last 25 years. She denies any use of alcohol or recreational drugs (occasional medical marijuana - but not recently). In the ER, patient was found to be with a blood pressure 140/90, heart rate 111, otherwise normal vital signs. She reported L sided facial numbness and was noted to have mild L angular facial droop at the lips, forehead sparing. Stroke alert was called. Not considered to be a candidate for TNKase. Labs demonstrated white count of 11.4 with mild left shift. INR 1. BMP revealing of K 3, Mg 1.9. CTA-H demonstrating chronic L MCA infarct with unchanged 1.7 mm saccular aneurysm in the supraclinoid segment of the L ICA, atherosclerosis of carotid bulbs without stenosis, moderate-severe pHTN. ECG demonstrating normal sinus rhythm with mildly prolonged QTC 467. She was given 300 mg of clopidogrel. Allergies Allergy/AdvReac Type Severity Reaction Status Date / Time meloxicam Allergy Mild ITCHING Verified 09/06/21 15:29 SWELLING codeine Allergy Unknown Verified 09/06/21 15:29 Penicillins Allergy Unknown Verified 09/06/21 15:29 propranolol Allergy Unknown Verified 09/06/21 15:29 morphine AdvReac Severe severe Verified 09/06/21 15:29 hypotension Inderal TABS Allergy Unknown Uncoded 09/06/21 15:29 Mobic TABS Allergy Unknown Uncoded 09/06/21 15:29 Home Medications Medication Instructions Recorded Confirmed Type diclofenac sodium 1 % topical gel See Rx Instructions TOPICAL 02/23/19 10/14/21 History .COMPLEX gm atorvastatin 40 mg tablet 40 mg PO DAILY tab 02/26/19 10/14/21 History bupropion HCl 150 mg 24 hr tablet, 150 mg PO DAILY #90 tab 09/06/21 10/14/21 Rx extended release (Wellbutrin XL) doxepin 75 mg capsule 75 mg PO DAILY #90 cap 09/06/21 10/14/21 Rx galcanezumab-gnlm 120 mg/mL 120 mg SQ .COMPLEX #3 ml 09/06/21 10/14/21 Rx subcutaneous syringe (Emgality) methocarbamol 750 mg tablet 750 mg PO BID PRN #180 tab 09/06/21 10/14/21 Rx promethazine 25 mg tablet 25 mg PO BID PRN #120 tab 09/06/21 10/14/21 Rx topiramate 100 mg tablet 100 mg PO BID #180 tab 09/06/21 10/14/21 Rx ubrogepant 100 mg tablet (Ubrelvy) 100 mg PO .COMPLEX PRN #30 tab MDD 09/06/21 10/14/21 Rx 200mg aspirin 81 mg tablet,delayed 81 mg PO DAILY 21 Days #0 tab 10/15/21 10/14/21 Rx release clopidogrel 75 mg tablet 75 mg PO DAILY #30 tab 10/15/21 Rx Past Med/Surg History Medical History (Updated 10/15/21 @ 15:33 by Cornelius Michael MD) Anxiety disorder Cervical radiculopathy Chronic obstructive pulmonary disease Common migraine without aura Common peroneal neuropathy of right lower extremity History of ischemic left MCA stroke HLD (hyperlipidemia) Low back pain Neck pain Osteoarthritis Surgical History H/O carpal tunnel repair Hx of hysterectomy S/P cholecystectomy Family History Mother Migraine Daughter Migraine Social History Smoking Status: Current every day smoker Hx Alcohol Use: Yes Alcohol type: wine and hard liquor Hx Substance Use: No Preferred Language: Nigerian Communication Ability: Effective Armor Reconnaissance Vehicle Driver Required: No Beliefs That Will Affect Care: None Current Living Situation: Spouse Other Information That Helps Us Care for You: No Feels Safe at Home: Yes Assistive Devices: Denture - Upper, Denture - Lower and Glasses Review of Systems Review of Systems: as per HPI Physical Exam Physical Exam: General: Well appearing 61yoF in NAD HEENT: NCAT. - Eyes - Sclera are white, anicteric, and without injection. PERRL. - Mouth - MMM with no tonsillar edema or exudates. - Neck - supple, no JVD Cardiac: Normal rate and regular rhythm; S1 and S2 present with no murmurs, rubs, or gallops. Pulmonary: Good respiratory effort with symmetric expansion of the chest. No use of accessory muscles. Lungs were clear to auscultation bilaterally with no crackles or wheezes. Abdominal: Normoactive bowel sounds. Abdomen was soft, nondistended, and non- tender to palpation. Extremities: Upper and lower extremities are warm and well perfused. Neuro: - Cranial Nerves: CN I, IX, and X - not assessed. II - PERRL. III/IV/ - EOMs WNL. No nystagmus. V - Patient reporting sensory abnormalities on L compared to R side in V1, V2, and V3; jaw opening normal. VII - Patient is able to smile symmetrically and keep eyes close against resistance. IX - Patient is able to rotate head and shrug shoulders against resistance. XI - Soft palate raises equally and appropriately while saying "ah." XII - patient is able to stick out tongue and deviate from [id number] appropriately. - Motor: UE - Finger, wrist, elbow, and shoulder strength is 5/5 bilaterally. LE - Hip, knee, and ankle strength is 5/5 bilaterally. - Sensation: UE and LE sensation to light touch is perceived as "abnormal" to light touch on LUE, LLE when compared to the R Results & Data Results & Data ([facility]) Vital Signs (Past 12 Hours) Vital Signs Temp Pulse Pulse Resp BP BP Pulse Ox 10/14/21 19:00 95 H 19 94/74 L 99 10/14/21 18:03 36.6 C 111 H 20 139/92 95 Supervising Physician Co-Signing Physician Notes Attending addendum: I have physically seen this patient, have supervised the medical residents activities, and agree with the H&P unless as otherwise noted. Assessment and Plan: Strokelike symptoms/left facial numbness/left hemisensory numbness/history of left MCA infarct Stroke alert assessment CTA head/CTA head and neck shows chronic left MCA infarct and unchanged 1.5 mm saccular aneurysm Stroke that tPA order set Order MRI brain for the a.m. Differential including TIA/CVA/complicated migraine/metabolic encephalopathy/medication side effects due to topiramate Consult PT/OT/speech/neurology Remaining orders and notations as noted Resident Activity Tracking Resident Involvement: Resident Care Provided Care Provided: [facility]
--- NOTE | 2021-10-14 20:24 | XRay Report ---
XR chest 1V portable HISTORY: 61 years-old Female Stroke Like Symptoms acute strokelike symptoms COMPARISON: Chest radiograph 05/04/2017 TECHNIQUE: Portable AP view of the chest FINDINGS: Cardiomediastinal and hilar silhouettes are within normal limits. Atherosclerosis of the thoracic aor ta. No pneumothorax, pleural effusion or overt pulmonary edema. Chronic interstitial coarsening of th e lung bases. Degenerative changes of the shoulders and spine. IMPRESSION: No acute process. ACT 112: Negative or not required by law. The above report was generated using voice recognition software. It may contain grammatical, syntax o r spelling errors. Electronically signed by: Joaquim Kumar M.D. 10/14/2021 8:22 PM
[2021-10-14] MEDS ORDERED: POTASSIUM CHLORIDE CRTAB 20 MEQ TABCR PO STA (21:09)
[2021-10-14] MEDS ORDERED: POTASSIUM CHLORIDE 10 MEQ / 100ML WTR IV ONE (21:18)
[2021-10-14] MEDS: POTASSIUM CHLORIDE / WTR 10 MEQ/100 ML PLCT IV SCH ×2 (21:24→23:11)
[2021-10-14] MEDS ORDERED: NON-FORMULARY MEDICATION (Ubrogepant [Ubrelvy] 100 mg tablet) PO PRN (22:01)
[2021-10-14] MEDS ORDERED: DICLOFENAC SOD 1% GEL 100 GM TUBE EXT PRN (22:01)
[2021-10-14] MEDS ORDERED: PROMETHAZINE HCL 25 MG TAB PO PRN (22:01)
[2021-10-14] MEDS ORDERED: LORazepam 2 MG/1 ML VIAL IV PRN (22:01)
[2021-10-14] MEDS: TOPIRAMATE 100 MG TAB PO SCH (23:06)
[2021-10-15] MEDS: ACETAMINOPHEN 325 MG TAB PO PRN ×2 (00:12→08:08)
[2021-10-15] MEDS ORDERED: LORazepam 2 MG/1 ML VIAL IV ONE (05:00)
[2021-10-15 07:57] LABS: Chol HDL Ratio 3.9 (0-5)
[2021-10-15] MEDS: TOPIRAMATE 100 MG TAB PO SCH (08:07)
[2021-10-15] MEDS ORDERED: ATORVASTATIN 40 MG TAB PO SCH (09:00)
[2021-10-15] MEDS ORDERED: buPROPion XL 150 MG TABCR PO SCH (09:00)
[2021-10-15] MEDS ORDERED: ASPIRIN 81 MG ECTAB PO SCH (09:00)
[2021-10-15] MEDS ORDERED: POTASSIUM CHLORIDE CRTAB 20 MEQ TABCR PO SCH (09:00)
--- NOTE | 2021-10-15 11:33 | Magnetic Resonance Report ---
MRI OF THE BRAIN WITHOUT IV CONTRAST CLINICAL HISTORY: Left facial numbness. COMPARISON STUDY: CT of the brain dated 10/15/2019. TECHNIQUE: MRI of the brain was performed utilizing various T1 and T2-weighted sequences in the axial , sagittal, and coronal planes. IV contrast was not administered for this examination. FINDINGS: Brain parenchyma: There is age-related involutional change noting mild subcortical and periventricula r microangiopathic disease. Foci of left MCA territory encephalomalacia are consistent with remote in farcts. There is no hemorrhage or mass effect. There is no restricted diffusion to suggest acute isch emia. Dueñas-white matter differentiation is preserved. No extra-axial fluid collection is seen. The ce rebellar tonsils are normal in configuration. Mineralization is noted in the basal ganglia. Ventricles, sulci, and cisterns: Prominent secondary to involutional change. Pituitary and sella: Unremarkable. Intracranial vasculature: Normal flow voids are maintained at the skull base. Orbits: The bony orbits are grossly intact. Orbital contents are normal in appearance. Sinuses and mastoids: There is mild mucosal thickening within the ethmoid sinuses. The remaining para nasal sinuses are clear, as are the mastoid air cells. Calvarium: Unremarkable. Cervical cord: Partially visualized cervical spinal cord is normal in morphology and signal intensity . IMPRESSION: Chronic findings as above with no acute intracranial abnormality. ACT 112: Negative or not required by law. Electronically signed by: John Clement M.D. 10/15/2021 11:31 AM
--- NOTE | 2021-10-15 15:37 | Discharge Summary ---
Date of Service October 15, 2021 Admission HPI Per Admitting Provider This is a 61-year-old female with a history of chronic left MCA stroke,, peroneal neuropathy of the right lower extremity, migraine without aura, COPD, anxiety, memory deficits, hyperlipidemia who presented to [facility] for evaluation of facial tingling. Patient said that earlier this afternoon, she was getting ready to go out of a car to go grocery shopping when she noticed that the left side of her face felt odd. She declined going in to the grocery store and had her go because she is worried about feelings of instability. However, as time went on, she noticed that the left side of her face was progressively feeling more numb. She denied any headache or vision changes at this time. Denied any issues with moving her arms or legs. Denies any nausea, vomiting, chest pain, palpitations, shortness of breath. She decided to come to the ER to be evaluated given concern for stroke. Medications reviewed and include aspirin, atorvastatin, Wellbutrin, diclofenac, doxepin, galcanezumab, methocarbamol, promethazine, topiramate, ubrogepant. She denies any new or changes in her medications. She endorses a long-term history of smoking, currently at 1 pack/day over the last 25 years. She denies any use of alcohol or recreational drugs (occasional medical marijuana - but not recently). In the ER, patient was found to be with a blood pressure 140/90, heart rate 111, otherwise normal vital signs. She reported L sided facial numbness and was noted to have mild L angular facial droop at the lips, forehead sparing. Stroke alert was called. Not considered to be a candidate for TNKase. Labs demonstrated white count of 11.4 with mild left shift. INR 1. BMP revealing of K 3, Mg 1.9. CTA-H demonstrating chronic L MCA infarct with unchanged 1.7 mm saccular aneurysm in the supraclinoid segment of the L ICA, atherosclerosis of carotid bulbs without stenosis, moderate-severe pHTN. ECG demonstrating normal sinus rhythm with mildly prolonged QTC 467. She was given 300 mg of clopidogrel. Principal Diagnosis Suspected complex migraine Possible transient ischemic attack Discharge Exam Constitutional WD/WN, vitals as above Neck trachea midline, no thyromegaly Cardiovascular RRR, no murmur, no edema Gastrointestinal (Abdomen) Inspection/Auscultation: normal bowel sounds Percussion/Palpation: abdomen soft; abdomen nontender Skin no rashes, warm and dry Neurologic moves all extremities and awake; no focal motor deficits (No unilateral deficit) and not confused Motor/Sensory: no pronator drift and no sensory deficit Cranial Nerves: PERRL, EOM intact bilaterally, normal facial strength, able to rotate head bilaterally, able to elevate shoulders bilaterally and no nystagmus Coordination: normal [id number] test Psychiatric A+Ox3, euthymic affect Discharge Data Allergies Allergy/AdvReac Type Severity Reaction Status Date / Time meloxicam Allergy Mild ITCHING Verified 09/06/21 15:29 SWELLING codeine Allergy Unknown Verified 09/06/21 15:29 Penicillins Allergy Unknown Verified 09/06/21 15:29 propranolol Allergy Unknown Verified 09/06/21 15:29 morphine AdvReac Severe severe Verified 09/06/21 15:29 hypotension Inderal TABS Allergy Unknown Uncoded 09/06/21 15:29 Mobic TABS Allergy Unknown Uncoded 09/06/21 15:29 Consultations 10/14/21 19:29 ED Decision to Admit Stat Ordered Studies 10/14/21 18:08 CT angio head w con Stat CT angio neck with con Stat IMPRESSION: 1. Chronic left MCA infarct redemonstrated. 2. Unchanged 1.7 mm saccular aneurysm involving the supraclinoid segment of the left internal carotid artery. 3. Atherosclerosis of the carotid bulbs without significant stenosis. 4. Moderate to severe pulmonary emphysema. CT head/brain wo con Stat IMPRESSION: 1. No acute intracranial abnormality. 2. Chronic left frontal lobe infarct. 10/15/21 06:00 MR brain wo con Routine IMPRESSION: Chronic findings as above with no acute intracranial abnormality. Hospital Course (1) Numbness and tingling: Divya Pino is a 61-year-old female observed overnight at [facility] from October 14 to October 15, 2021 due to left-sided facial droop and left-sided numbness especially in her face. ER physician discussed with telestroke neurologist at [facility] but her presenting symptoms do not appear to be consistent with an acute large vessel occlusion therefore no thrombolytics were given. Recommended she was loaded with Plavix and she was observed overnight. She had complete resolution of her symptoms in 1 hour. No recurrence of her symptoms the following day. No associated headache to definitively diagnose complex migraine therefore given her significant history of stroke decided to treat as a transient ischemic attack with aspirin and clopidogrel for 21 days and then continue on clopidogrel alone. She is already on a high intensity statin with LDL at goal 58 therefore this was not increased. TTE was not performed and this was ordered as an outpatient to be followed up with neurology. No atrial fibrillation on telemetry - will defer to neurology whether additional monitoring is necessary. She was also noted to have a low potassium level of 3.0. Supplementation was given during her admission. Recommend following up with BMP with her PCP in approximately 1 to 2 weeks. (2) History of ischemic left MCA stroke: (3) Low back pain: (4) Mood disorder: (5) Migraine: (6) Elevated alkaline phosphatase level: (7) Hypokalemia: Total Time Total Time Spent Total Time Spent (In Minutes): 40 Discharge Plan Discharge Items Patient Disposition: Home - Self-Care Reason For Visit: POSSIBLE TIA Discharge Diagnosis: Suspected complex migraine Possible TIA Activity: Resume your previous activity Non-emergency contact: Neurologist Call non-emergency contact if: you have any medication questions and your symptoms worsen Follow-up/Referrals: Lenny Henderson MD [Physician] - (1-2 weeks TIA follow up) PCP,NO [Primary Care Provider] - Diet: Heart Healthy Ambulatory Orders: CA echo transthoracic complete (Routine) Timeframe: 1 Week Location: Determined by Patient Ordered By: Cornelius Michaels Attending Provider Instructions: You were observed overnight from October 14 to October 16, 2019 due to left facial and extremity numbness. No stroke seen on brain MRI. You were diagnosed with most likely complex migraine however given significant history of acute stroke and no similay prior complex migraine will treat for possible transient ischemic attack (mini stroke). Treatment for this involves taking clopidogrel and aspirin for 21 days then continuing on clopidogrel alone indefinitely. As part of stroke workup recommend having echocardiogram as ordered - please follow up with neurology for results of this. You were also noted to have a low potassium. This was replaced during you inpatient admission. Recommend this is rechecked with your primary care physician in approximately 1 week. Pending Studies at Discharge: Yes (RPR, HbA1C) Stand-Alone Forms: [employer], Smoking Cessation Medications and DC Order Prescriptions: New clopidogrel 75 mg tablet 75 mg PO DAILY Qty: 30 RF: 0 Continued bupropion HCl [Wellbutrin XL] 150 mg tablet extended release 24 hr 150 mg PO DAILY Qty: 90 RF: 2 doxepin 75 mg capsule 75 mg PO DAILY Qty: 90 RF: 2 Emgality Syringe 120 mg/mL syringe 120 mg SQ .COMPLEX Qty: 3 RF: 2 methocarbamol 750 mg tablet 750 mg PO BID PRN (Reason: muscle spasm) Qty: 180 RF: 2 promethazine 25 mg tablet 25 mg PO BID PRN (Reason: nausea and vomiting) Qty: 120 RF: 1 topiramate 100 mg tablet 100 mg PO BID Qty: 180 RF: 2 Ubrelvy 100 mg tablet 100 mg PO .COMPLEX MDD 200mg PRN (Reason: migraine headache) Qty: 30 RF: 2 diclofenac sodium 1 % gel See Rx Instructions topical .COMPLEX RF: 0 atorvastatin 40 mg tablet 40 mg PO DAILY RF: 0 aspirin 81 mg tablet,delayed release (DR/EC) 81 mg PO DAILY 21 Days Qty: 0 RF: 0 Discharge Orders: Discharge Order (Routine); Ordered 10/15/21 Ordered By: Cornelius Michael Admission Data Admit Date/Time: 10/14/21 20:20 Attending Provider: Cornelius Michael Admit Provider: Romeo Salazar Primary Care Provider: PCP,NO Other Providers: Lenny Henderson ; Asad Scott Other Interventions: Discharge Summary Assessment (RN) Last Done: 10/15/21 15:47 Coding Level of Care Code D/C DAY MANAGEMENT >30 MINS Diagnoses Numbness and tingling R20.0; R20.2 History of ischemic left MCA stroke Z86.73 Low back pain M54.5 Mood disorder F39 Migraine G43.909 Elevated alkaline phosphatase level R74.8 Hypokalemia E87.6
--- NOTE | 2021-10-15 20:13 | Billing Data ---
Date of Service October 15, 2021 Coding Level of Care Code 35691 Initial Inpt Care Lvl 3
[2021-10-15] MEDS ORDERED: DOXEPIN HCL 75 MG CAPSULE PO SCH (21:00)
--- NOTE | 2021-10-16 06:41 | Electrocardiogram Report ---
Test Reason : Blood Pressure : / mmHG Vent. Rate : 095 BPM Atrial Rate : 095 BPM P-R Int : 170 ms QRS Dur : 086 ms QT Int : 372 ms P-R-T Axes : 067 -22 042 degrees QTc Int : 467 ms Normal sinus rhythm Low voltage QRS Cannot rule out Anterior infarct (cited on or before 25-DEC-2017) Abnormal ECG When compared with ECG of 25-DEC-2017 14:39, Questionable change in QRS axis Confirmed by Anand Huston ([id number]) on 10/16/2021 6:41:29 AM Referred By: REFERRED SELF Confirmed By:Anand Huston
--- NOTE | 2021-10-16 06:56 | Electrocardiogram Report ---
Test Reason : Blood Pressure : / mmHG Vent. Rate : 089 BPM Atrial Rate : 089 BPM P-R Int : 162 ms QRS Dur : 082 ms QT Int : 398 ms P-R-T Axes : 013 085 024 degrees QTc Int : 484 ms Normal sinus rhythm Low voltage QRS Borderline ECG When compared with ECG of 14-OCT-2021 18:32, (unconfirmed) No significant change was found Confirmed by Anand Huston ([id number]) on 10/16/2021 6:56:48 AM Referred By: REFERRED SELF Confirmed By:Anand Huston
[2021-10-16 08:47] LABS: Estimated Average Glucose 117 mg/dl; Hemoglobin A1C 5.7 % (4.5-5.6)
== END 2021-10-15 16:00 | disposition home or self-care (01) ==
LOC: ED 18:00 → INTOOBSV 20:20 → SUATTDRO 20:20 → 2N 21:02